=== PATIENT | male | born 1990 | race Caucasian/White ===

== ENCOUNTER 2016-10-07 19:04 | Emergency (ER) | payer BC ==
[2016-10-07 19:20] VITALS: BP 119/68
--- NOTE | 2016-10-07 21:41 | ER ---
DATE SEEN: 10/07/2016 TIME SEEN: 1900 hours. REASON FOR VISIT: Fever. HISTORY OF PRESENT ILLNESS: This is a 25-year-old male complaining of fever that started insidiously last night. Today, it was up to 103, associated with chills, rigors, nausea, and runny nose. Denies any abdominal pain, chest pain, cough, or shortness of breath. No sore throat. PAST MEDICAL HISTORY: Healthy. ALLERGIES: No known allergies. REVIEW OF SYSTEMS: All other systems normal and unremarkable. PHYSICAL EXAMINATION: VITAL SIGNS: Temperature is 99.6, pulse 115, and blood pressure is normal. EARS, NOSE, AND THROAT: Negative. HEAD: Normal size. CHEST: Clear. Heart: Regular rhythm. NECK: Supple. LABORATORY DATA: CBC was unremarkable. Hemoglobin 16.6 and electrolytes were normal. IMPRESSION: Acute febrile illness. PLAN: West Nile virus was sent. I recommended ibuprofen, Tylenol, fluids and if symptoms are not improved, return to the ED by tomorrow or Sunday to the clinic. /[id number] SRINIVAS/MAMIEL
== END 2016-10-07 20:25 | disposition home or self-care (01) ==
LOC: FB.ED 19:04
DX: R50.9 Fever, unspecified (principal)
CPT/HCPCS: 36415; 80053; 85025; 86788; 86789; 99283

== ENCOUNTER 2017-11-04 18:45 | Emergency (ER) | payer OTHER, BC ==
[2017-11-04] MEDS ORDERED: Hydrocortisone/Neomycin/Polymyxin B Ophth Susp 7.5 ML Bottle ONE (19:22)
--- NOTE | 2017-11-04 20:35 | ER ---
DATE SEEN: 11/04/2017 CHIEF COMPLAINT: Right eye foreign body. 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 1 piece of shaving fell to the right eye despite him wearing safety glasses. This happened at work today. He complains of a headache but denies any flashing lights or any decrease in vision, nausea, or vomiting. ALLERGIES: He has no known allergies. PHYSICAL EXAMINATION: VITAL SIGNS: He is afebrile. EYES: Visual acuity is 20/30 bilaterally. There is mild conjunctival redness in the right eye. There is a tiny 1 mm sized foreign body on the cornea. Pupils are equal and reactive to light, and the extraocular movements are intact. IMPRESSION: Foreign body of the right cornea. PLAN: I used a drill to remove some of the dust. There might have been some small little dust left on that eye despite 3 attempts for removal. I washed it and sent him home on Cortisporin drops and advised him to be seen tomorrow by Dr. Sabina Salguero at the [facility] [place]. Return to the ED tonight with any worsening symptoms. TIME SEEN: 1900 hours. /[id number] 2010 SRINIVAS/RHONDA
[2017-11-04 23:07] VITALS: BP 102/59
== END 2017-11-04 19:30 | disposition home or self-care (01) ==
LOC: FB.ED 18:45
DX: T15.01XA Foreign body in cornea, right eye, initial encounter (principal)
CPT/HCPCS: 99283; A9270-GY